=== PATIENT | male | born 1965 | race Caucasian/White ===

== ENCOUNTER → 2016-07-05 | Outpatient (CLI) | payer OTHER | END | disposition home or self-care (01) | LOC: CDC 12:17 | DX: Z01.810 Encounter for preprocedural cardiovascular examination (principal); S83.512A Sprain of anterior cruciate ligament of left knee, initial encounter; M25.562 Pain in left knee | CPT/HCPCS: 93000 ==

== ENCOUNTER 2016-12-23 17:29 | Inpatient (IN) | payer OTHER ==
[~2016-12-23] VITALS: Ht 190.5 cm; Wt 106.4 kg
[2016-12-23 20:19] LABS: MCH 32.7 PG (29.0-34.0); MCHC 33.6 G/DL (30.0-36.0); MCV 97.1 FL (86-99); MEAN PLAT.VOLUME 8.9 uM^3 (9.0-12.4); PLATELET COUNT 282 K/uL (156-360); RBC DIS.WIDTH-CV 14.1 % (11.8-14.6); RBC DIS.WIDTH-SD 50.5 % (39-53); RED BLOOD COUNT 4.53 M/uL (4.00-5.50); WHITE BLOOD COUNT 8.9 K/uL (4.1-10.2)
[2016-12-23 20:33] LABS: CHLORIDE 107 mEq/L (99-109); POTASSIUM 4.2 mEq/L (3.7-5.4); SODIUM 139 mEq/L (136-147)
[2016-12-23 20:36] LABS: GLUCOSE 122 mg/dL (70-99)
[2016-12-23 20:37] LABS: ANION GAP 7 MEQ/L (2-14); TOTAL BILIRUBIN 0.3 mg/dL (0.0-1.0)
[2016-12-23 20:38] LABS: INTER. NORMALIZED RATIO 1.1; PROTHROMBIN TIME 10.7 (9.2-11.2); PTT 29.8 (25-32)
[2016-12-23 20:39] LABS: ALKALINE PHOSPHATASE 71 IU/L (3-129); GFR ESTIMATE (CALCULATED) > 59 mL/min/
[2016-12-23 20:40] LABS: UREA NITROGEN (BUN) 15 mg/dL (9-23)
[2016-12-23 20:41] LABS: DIRECT BILIRUBIN 0.1 mg/dL (0.0-0.3)
[2016-12-23 20:45] LABS: TROP-I INTERPRETATION NEGATIVE; TROPONIN-I < 0.01 ng/mL (0.0-0.30)
[2016-12-23 21:07] LABS: ADD MIUA? YES; BILIRUBIN NEGATIVE; BLOOD SMALL; COLOR YELLOW ((YELLOW)); GLUCOSE (STRIP) NEGATIVE; KETONES NEGATIVE; LEUKOCYTES NEGATIVE; NITRITE NEGATIVE; PROTEIN (STRIP) 30; SPECIFIC GRAVITY 1.014 (1.000-1.030); UROBILINOGEN 0.2 MG/DL (0.2-1.0)
[2016-12-23 21:14] LABS: BACTERIA NONE SEEN /HPF; EPITHELIAL CELLS NONE SEEN /HPF; MUCUS TRACE /LPF; WHITE BLOOD CELLS NONE SEEN /HPF (0-5)
[2016-12-23 21:41] LABS: ADD MEDTOX COMMENT Y; AMPHETAMINE NEGATIVE (500 ng/mL); BARBITURATES NEGATIVE (200 ng/mL); BENZODIAZEPINES NEGATIVE (150 ng/mL); COCAINE NEGATIVE (150 ng/mL); INTERNAL CONTROLS VALID? YES; METHADONE NEGATIVE (200 ng/mL); METHAMPHETAMINE NEGATIVE (500 ng/mL); OPIATES (MORPHINE) NEGATIVE (100 ng/mL); OXYCODONE NEGATIVE (100 ng/mL); PHENCYCLIDINE NEGATIVE (25 ng/mL); PROPOXYPHENE NEGATIVE (300 ng/mL); THC CANNABINOIDS PRESUMPTIVE POSITIVE (50 ng/mL); TRICYCLIC ANTIDEPRESSANTS NEGATIVE (300 ng/mL)
[2016-12-23] MEDS ORDERED: IRBESARTAN150 MG PO (22:36)
[2016-12-23] MEDS ORDERED: CITALOPRAM HBR20 MG PO (22:37)
[2016-12-23] MEDS ORDERED: LO-DOSE ASPIRIN81 M2 PO (22:37)
[2016-12-23] MEDS ORDERED: CHLORTHALIDONE25 MG PO (22:38)
[2016-12-24] MEDS ORDERED: super beta prostate PO (00:31)
[2016-12-24 03:54] LABS: HDL CHOLESTEROL 39 MG/DL (Desirable>=40); LDL CHOLESTEROL 93 mg/dL (Desirable<100); NON-HDL CHOLESTEROL 124 mg/dL (Desirable<160); SAMPLE HEMOLYSIS CHECK 0; SAMPLE ICTERIC CHECK 0; SAMPLE LIPEMIA CHECK 0; TOTAL CHOLESTEROL 163 mg/dL (Desirable<200); TRIGLYCERIDES 154 MG/DL (Normal: <150)
[2016-12-24 04:05] VITALS: BP 196/95
[2016-12-24 04:48] VITALS: BP 172/79
[2016-12-24 05:38] LABS: HEMATOCRIT 45.2 % (38.0-50.0); MCH 33.8 PG (29.0-34.0); MCHC 34.5 G/DL (30.0-36.0); MEAN PLAT.VOLUME 9.1 uM^3 (9.0-12.4); PLATELET COUNT 280 K/uL (156-360); RBC DIS.WIDTH-CV 14.3 % (11.8-14.6); RBC DIS.WIDTH-SD 51.9 % (39-53); RED BLOOD COUNT 4.61 M/uL (4.00-5.50); WHITE BLOOD COUNT 11.8 K/uL (4.1-10.2)
[2016-12-24 05:53] LABS: ANION GAP 8 MEQ/L (2-14); CHLORIDE 103 MEQ/L (99-109); GFR ESTIMATE (CALCULATED) > 59 mL/min/; GLUCOSE 141 mg/dL (70-99); POTASSIUM 3.7 MEQ/L (3.7-5.4); SAMPLE HEMOLYSIS CHECK 0; SAMPLE ICTERIC CHECK 0; SAMPLE LIPEMIA CHECK 0; SODIUM 137 MEQ/L (136-147); UREA NITROGEN (BUN) 14 mg/dL (9-23)
[2016-12-24 07:00] LABS: Estimated Average Glucose 123 mg/dL (70-123); HEMOGLOBIN A1c (GLYCOHEMOGLOB) 5.9 % HGB (Below 5.7)
[2016-12-24 10:52] VITALS: BP 172/68
[2016-12-24 12:11] VITALS: BP 170/64
[2016-12-24 15:52] VITALS: BP 162/60
[2016-12-24 19:38] VITALS: BP 188/88
[2016-12-25] VITALS: BP 166/84
[2016-12-25 03:40] VITALS: BP 156/72
[2016-12-25 09:35] LABS: HEMATOCRIT 42.9 % (38.0-50.0); MCH 33.6 PG (29.0-34.0); MCV 98.6 FL (86-99); MEAN PLAT.VOLUME 9.2 uM^3 (9.0-12.4); PLATELET COUNT 271 K/uL (156-360); RBC DIS.WIDTH-CV 14.5 % (11.8-14.6); RBC DIS.WIDTH-SD 52.6 % (39-53); RED BLOOD COUNT 4.35 M/uL (4.00-5.50); WHITE BLOOD COUNT 9.3 K/uL (4.1-10.2)
[2016-12-25 09:40] VITALS: BP 162/70
[2016-12-25 10:01] LABS: ANION GAP 8 MEQ/L (2-14); CHLORIDE 103 MEQ/L (99-109); GFR ESTIMATE (CALCULATED) > 59 mL/min/; GLUCOSE 128 mg/dL (70-99); POTASSIUM 4.1 MEQ/L (3.7-5.4); SAMPLE HEMOLYSIS CHECK 0; SAMPLE ICTERIC CHECK 0; SAMPLE LIPEMIA CHECK 0; SODIUM 140 MEQ/L (136-147); UREA NITROGEN (BUN) 18 mg/dL (9-23)
[2016-12-25 11:55] VITALS: BP 164/70
[2016-12-25] MEDS ORDERED: LOSARTAN POTAS100 MG PO (14:27)
[2016-12-25] MEDS ORDERED: PRAVASTATIN SOD40 MG PO (14:27)
[2016-12-25 14:51] VITALS: BP 156/78
[2016-12-25] MEDS ORDERED: NICOTINE PATCH1 EAC2 TD (14:55)
== END 2016-12-25 15:24 | disposition home or self-care (01) | DRG 65 ==
LOC: EME 17:29 → EDOF 23:54 → 4EAST 23:54 → EDOF 12-24 00:30 → 4EAST 12-24 03:48
PROVIDERS: Hospitalist; Physician Assistant
DX: I63.9 Cerebral infarction, unspecified (principal); I67.4 Hypertensive encephalopathy; I71.2 Thoracic aortic aneurysm, without rupture; G43.409 Hemiplegic migraine, not intractable, without status migrainosus; I10 Essential (primary) hypertension; F17.200 Nicotine dependence, unspecified, uncomplicated; Z91.19 Patient's noncompliance with other medical treatment and regimen; G47.30 Sleep apnea, unspecified; I73.9 Peripheral vascular disease, unspecified; F12.10 Cannabis abuse, uncomplicated; K76.89 Other specified diseases of liver; E78.5 Hyperlipidemia, unspecified; N28.1 Cyst of kidney, acquired; N40.0 Benign prostatic hyperplasia without lower urinary tract symptoms; R31.9 Hematuria, unspecified; I16.1 Hypertensive emergency; R29.700 NIHSS score 0; Z91.14 Patient's other noncompliance with medication regimen
CPT/HCPCS: 70450; 70551; 71020; 71275; 74174; 80048; 80061; 80076; 81003; 83036; 84484; 84999; 85027; 85610; 85730; 93005; 93306; 93880; 99281; 99285; J0360; J7050

== ENCOUNTER → 2017-06-10 | Outpatient (CLI) | payer OTHER ==
[~2017-06-10] VITALS: Ht 190.5 cm; Wt 106.6 kg
[~2017-06-10] MED LIST: CHLORTHALIDONE25 MG PO; CITALOPRAM HBR20 MG PO; DEPAKOTE ER250 MG PO; IRBESARTAN150 MG PO; LO-DOSE ASPIRIN81 M2 PO; LOSARTAN POTAS100 MG PO; NICOTINE PATCH1 EAC2 TD; PLAVIX75 MG PO; PRAVASTATIN SOD40 MG PO; TRIBENZOR 40-11 EAC1 PO; super beta prostate PO
== END | disposition home or self-care (01) ==
LOC: AMB 09:29
PROC: B246ZZ4 Ultrasonography of Right and Left Heart, Transesophageal (ICD-10-PCS; principal; 2017-06-10)
DX: I63.9 Cerebral infarction, unspecified (principal); I10 Essential (primary) hypertension; G47.33 Obstructive sleep apnea (adult) (pediatric); F17.200 Nicotine dependence, unspecified, uncomplicated
CPT/HCPCS: 93312

== ENCOUNTER → 2018-02-19 | Outpatient (CLI) | payer OTHER | END | disposition home or self-care (01) | LOC: CDC 15:18 | DX: Z01.810 Encounter for preprocedural cardiovascular examination (principal); I70.25 Atherosclerosis of native arteries of other extremities with ulceration | CPT/HCPCS: 93000 ==